=== PATIENT | female | born 1945 | race Caucasian/White ===

== ENCOUNTER 2020-06-23 20:25 | Inpatient (IN) | payer MEDICARE, BC ==
[~2020-06-23] VITALS: Ht 162.6 cm; Wt 61.7 kg
--- NOTE | 2020-06-23 20:47 | NUR ---
Patient states she wants Jhon Click her to be on her contact list .
[2020-06-23] MEDS ORDERED: QUET25TA PO ×2 (20:51)
[2020-06-23] MEDS ORDERED: LITH300T3 PO (20:51)
[2020-06-23] MEDS ORDERED: AMLO-212 PO (20:51)
[2020-06-23] MEDS ORDERED: MIRT-121 PO (20:51)
--- NOTE | 2020-06-23 20:55 | NUR ---
building services technician arrived to take x-ray of patient.
--- NOTE | 2020-06-23 21:00 | NUR ---
electronic technician in room to draw labs from patient.
--- NOTE | 2020-06-23 21:05 | NUR ---
Kobe DO in room to do MSE.
[2020-06-23 21:16] LABS: BASOPHILS # (AUTO) 0.1 K/uL (0.0-8.0); BASOPHILS % (AUTO) 0.9 % (0.0-2.0); EOSINOPHILS # (AUTO) 0.1 K/uL (0.0-0.7); EOSINOPHILS % (AUTO) 1.2 % (0.0-7.0); HEMATOCRIT 42.3 % (31.2-41.9); HEMOGLOBIN 14.1 g/dL (10.9-14.3); LYMPHOCYTES % (AUTO) 25.4 % (20.5-51.5); MEAN CORPUSCULAR HGB CONC 33 g/dL (32.3-35.6); MEAN CORPUSCULAR VOLUME 86.9 fL (75.5-95.3); MONOCYTES # (AUTO) 0.6 K/uL (2.0-10.0); MONOCYTES % (AUTO) 7.4 % (0.0-11.0); NEUTROPHILS # (AUTO) 5.2 K/uL (1.8-8.9); NEUTROPHILS % (AUTO) 65.1 % (38.5-71.5); PLATELET COUNT (AUTO) 282 K/uL (179-408); RED BLOOD CELL COUNT(AUTO) 4.86 MIL/uL (3.63-4.92)
[2020-06-23 21:20] LABS: CARBON DIOXIDE 29 mmol/L (21-32); CHLORIDE 104 mmol/L (98-107); CREATININE 0.7 mg/dL (0.6-1.3); GLUCOSE 100 mg/dL (74-106); POTASSIUM 3.8 mmol/L (3.5-5.1); UREA NITROGEN, BLOOD 13 mg/dL (7-18)
[2020-06-23 21:25] LABS: ALANINE AMINOTRANSFERASE 41 U/L (14-59); ALKALINE PHOSPHATASE 60 U/L (50-136); ASPARTATE AMINOTRANSFERASE 15 U/L (15-37); BILIRUBIN,DIRECT 0.1 mg/dL (0.0-0.2); BILIRUBIN,TOTAL 0.6 mg/dL (0.2-1.0)
[2020-06-23 21:26] LABS: ACETAMINOPHEN < 2.0 ug/mL (10-30)
--- NOTE | 2020-06-23 21:32 | NUR ---
Patient will be assigned to [facility].
[2020-06-23 21:36] LABS: ETHANOL < 3 MG/DL (0-0)
[2020-06-23 21:48] LABS: *AMPHETAMINE, URINE NEGATIVE (NEGATIVE); *CANNABINOID, URINE NEGATIVE (NEGATIVE); *COCCAINE, URINE NEGATIVE (NEGATIVE); *OPIATE, URINE NEGATIVE (NEGATIVE); *PHENCYCLIDINE SCREEN,URINE NEGATIVE (NEGATIVE)
--- NOTE | 2020-06-23 22:16 | NUR ---
Report given to RENE Joyce.
--- NOTE | 2020-06-23 22:35 | NUR ---
Pt. admitted to [facility], under care of Dr. Mendoza. Belongs List completed, all original paperwork with patient.
[2020-06-23] MEDS ORDERED: MAGNESIUM HYDROXIDE 30 ML LIQUID UDC PO PRN (22:45)
[2020-06-23] MEDS ORDERED: TEMAZEPAM 7.5 MG CAPSULE PO PRN (22:45)
[2020-06-23] MEDS ORDERED: LORAZEPAM 1 MG TABLET PO PRN (22:45)
[2020-06-23] MEDS ORDERED: MAG HYDROX/AL HYDROX/SIMETH 30 ML LIQUID UDC PO PRN (22:45)
[2020-06-23] MEDS ORDERED: ACETAMINOPHEN 325 MG TABLET PO PRN (22:45)
[2020-06-23 23:32] VITALS: BP 118/86
--- NOTE | 2020-06-23 23:50 | NUR ---
GPS: Admitted to unit earlier a 74 yr.old female under the care of () who was medically cleared in our E.R. Pt.is on 72 hour hold for DTS/GD. Pt.has not been eating/taking her meds.and verbalized SI and paranoid delusions,per hold. Pt.is alert x2-3 but forgetful. Denies verbalizing SI when asked by staff. Contracts for safety while in the unit. Body check done. Personal belongings completed. Pt's advisement/Pt's rights booklet given. Oriented to surroundings. Unit rules explained. Anxious at times and needs re-assurance. Safety emphasized. Refused sleeping pill for insomnia when offered by staff. Will continue to monitor.
--- NOTE | 2020-06-24 06:34 | NUR ---
GPS: Pt.slept poorly last night (45 minutes only) Refused sleeping pill when offered numerous times. Anxious and frequently looking for her clothes despite staff telling her that her clothes are being washed. Needs attended. Safe environment provided.
[2020-06-24 07:28] LABS: BILIRUBIN,TOTAL 0.9 mg/dL (0.2-1.0); CREATININE 0.8 mg/dL (0.6-1.3); POTASSIUM 4.2 mmol/L (3.5-5.1); TOTAL PROTEIN, SERUM 6.8 g/dL (6.4-8.2)
[2020-06-24 07:30] VITALS: BP 106/67
[2020-06-24] MEDS: AMLODIPINE 5 MG TABLET PO SCH (09:00)
[2020-06-24 15:19] VITALS: BP 124/66
--- NOTE | 2020-06-24 16:00 | NUR ---
Gps/Tablet Technician- In and out of her room, tends, gets intrusive, tries to take care of other patient , checking on thenm, discouraged from doing so, reminded she is a patient , not a Nurse .
[2020-06-24 20:00] VITALS: BP 137/65
[2020-06-24] MEDS: QUETIAPINE FUMARATE 100 MG TABLET PO SCH (21:28)
[2020-06-24] MEDS: LITHIUM CARBONATE 300 MG CAPSULE PO SCH (21:28)
--- NOTE | 2020-06-25 06:15 | NUR ---
PAtient slept 4.15 hrs.Noted in and out of her room and goes to other patient's room to check on them.Patient able to re-direct.
[2020-06-25 07:30] VITALS: BP 127/61
[2020-06-25 08:00] VITALS: BP 127/61
[2020-06-25] MEDS: LITHIUM CARBONATE 300 MG CAPSULE PO SCH ×2 (08:15→20:12)
[2020-06-25] MEDS: AMLODIPINE 5 MG TABLET PO SCH (08:16)
[2020-06-25] MEDS: QUETIAPINE FUMARATE 25 MG TABLET PO SCH (08:16)
--- NOTE | 2020-06-25 08:55 | NUR ---
Gps/Manager Winter- Patient Hesitant to take routine am meds. reviewed with patient rationale, noted > anxious, suspicious about the medications , showed wrappers, how much mgs. they are. Reassured patient she'll be monitored closely , prompted to take meds. Patient interacting fairly well with her roommate
[2020-06-25 16:00] VITALS: BP 128/67
[2020-06-25 20:00] VITALS: BP 121/66
[2020-06-25] MEDS: QUETIAPINE FUMARATE 100 MG TABLET PO SCH (20:12)
--- NOTE | 2020-06-26 06:29 | NUR ---
GPS: Pt.slept for 9 hrs.last night. In no acute distress noted. Re-directed and re-assured prn. Denies wanting to hurt self.
[2020-06-26 07:30] VITALS: BP 108/73
--- NOTE | 2020-06-26 08:29 | NUR ---
Firearms Report: Marine Pipefitter Helper completed and submitted a [employer] firearms report for 5[address] grave disability certification. A copy of report has been placed in patient chart.
[2020-06-26] MEDS: AMLODIPINE 5 MG TABLET PO SCH (09:08)
[2020-06-26] MEDS: QUETIAPINE FUMARATE 25 MG TABLET PO SCH (09:08)
[2020-06-26] MEDS: LITHIUM CARBONATE 300 MG CAPSULE PO SCH ×2 (09:08→20:30)
--- NOTE | 2020-06-26 10:13 | NUR ---
SW Initial Discharge Note: Patient currently resides at home with Jhon located at [address] [place] [address]; ([phone]). Patient would want to go back home upon. This SW contacted patient's Lisa; ([phone]) to gather collateral and discuss treatment plan. SW will coordinate with the family and treatment team to coordinate proper discharge.
--- NOTE | 2020-06-26 10:13 | NUR ---
SW Family Contact: This SW contacted patient's Pual; ([phone]) to gather collateral and discuss treatment plan. Patient's expressed to this SW that Seroquel and [place] has not been affective at home and would want doctor to prescribe another medication for her paranoia. This SW passed on this message to Dr. Moise at 10AM.
[2020-06-26 15:01] VITALS: BP 96/61
--- NOTE | 2020-06-26 15:29 | NUR ---
Individual Therapy: garden worker met with patient for brief counseling and discussed patient's presenting problem paranoid thought content. Patient appeared withdrawn and depressed. Patient unable to maintain proper eye contact. Patient appeared in a position. Patient did not want to speak to this SW at this time.
[2020-06-26 20:12] VITALS: BP 101/61
[2020-06-26] MEDS ORDERED: QUETIAPINE FUMARATE 100 MG TABLET PO SCH (21:00)
[2020-06-27 07:30] VITALS: BP 90/54
[2020-06-27] MEDS: QUETIAPINE FUMARATE 25 MG TABLET PO SCH (08:47)
[2020-06-27] MEDS: AMLODIPINE 5 MG TABLET PO SCH (08:47)
[2020-06-27] MEDS: LITHIUM CARBONATE 300 MG CAPSULE PO SCH ×2 (08:47→20:26)
[2020-06-27 16:00] VITALS: BP 97/61
[2020-06-27 20:18] VITALS: BP 91/54
--- NOTE | 2020-06-27 22:00 | NUR ---
SEROQUEL 150MG PO QHS WAS HELD D/T PATIENT'S LOW B/P OF 91/54MMHG. WILL CONTINUE TO MONITOR.
--- NOTE | 2020-06-28 06:57 | NUR ---
PATIENT SLEPT FOR APPROX 5.15 HRS THROUGH THE NIGHT. WILL CONTINUE TO MONITOR.
[2020-06-28 07:30] VITALS: BP 124/49
[2020-06-28] MEDS: QUETIAPINE FUMARATE 25 MG TABLET PO SCH (08:34)
[2020-06-28] MEDS: AMLODIPINE 5 MG TABLET PO SCH (08:34)
[2020-06-28] MEDS: LITHIUM CARBONATE 300 MG CAPSULE PO SCH ×2 (08:34→20:06)
[2020-06-28] MEDS: ENSURE ENLIVE (VAN) 240 ML LIQUID PO SCH (09:00)
[2020-06-28 16:00] VITALS: BP 136/58
[2020-06-28] MEDS: QUETIAPINE FUMARATE 100 MG TABLET PO SCH (20:06)
[2020-06-28 20:14] VITALS: BP 156/78
[2020-06-29 07:30] VITALS: BP 134/61
[2020-06-29] MEDS: LITHIUM CARBONATE 300 MG CAPSULE PO SCH ×2 (08:07→20:19)
[2020-06-29] MEDS: QUETIAPINE FUMARATE 25 MG TABLET PO SCH (08:07)
[2020-06-29] MEDS: AMLODIPINE 5 MG TABLET PO SCH (08:08)
[2020-06-29] MEDS: ENSURE ENLIVE (VAN) 240 ML LIQUID PO SCH (08:08)
--- NOTE | 2020-06-29 09:17 | NUR ---
Individual Therapy: cafeteria worker met with patient for brief counseling and discussed patient's presenting problem paranoid thought content. Patient continued to appear depressed and withdrawn. She did not want to communicate with this SW at this time.
--- NOTE | 2020-06-29 09:44 | NUR ---
SW Family Contact: This SW spoke with patient's Jhon ([phone]) and stated today will be patient's court hearing.
--- NOTE | 2020-06-29 10:18 | NUR ---
Court Hearing: Patient's court hearing was today and it was upheld for GD.
[2020-06-29 16:31] VITALS: BP 146/69
--- NOTE | 2020-06-29 17:45 | NUR ---
received patient AOx3-4, patient isolative, withdrawn, compliant with medication, patient paranoid, patient suspicious with medication and food trays coming in to her room, needed prompting
[2020-06-29 20:17] VITALS: BP 128/62
[2020-06-29] MEDS: QUETIAPINE FUMARATE 100 MG TABLET PO SCH (20:20)
[2020-06-30 07:30] VITALS: BP 155/126
[2020-06-30] MEDS: AMLODIPINE 5 MG TABLET PO SCH (08:27)
[2020-06-30] MEDS: QUETIAPINE FUMARATE 25 MG TABLET PO SCH (08:27)
[2020-06-30] MEDS: ENSURE ENLIVE (VAN) 240 ML LIQUID PO SCH (08:27)
[2020-06-30] MEDS: LITHIUM CARBONATE 300 MG CAPSULE PO SCH ×2 (08:27→20:09)
--- NOTE | 2020-06-30 11:41 | NUR ---
SW Family Contact: This SW spoke with patient's Jhon ([phone]) who requested to speak to the doctor and this SW notified doctor Reji.
--- NOTE | 2020-06-30 11:51 | NUR ---
SW Family Contact: This SW spoke with patient's Jhon ([phone]) and he stated he is concerned about patient's eye situation. This SW stated that she will transfer this concern to her nurse. This SW notified patient's RN Allan who stated she is aware of this condition and will be giving patient her eye drops. This SW discussed treatment plan and discharge plan with boyfriend Fer. Addendum: 06/30/20 at 1438 by REBEKAH RUIZ Wrong patient
--- NOTE | 2020-06-30 14:49 | NUR ---
Individual Therapy: field ironworker met with patient for brief counseling and discussed patient's presenting problem paranoid thought content. Patient was unable to focus and was focused on her roommate. She kept stating to this SW to help her roommate. Patient unable to focus at this time to conduct therapy.
[2020-06-30 16:00] VITALS: BP 140/65
[2020-06-30] MEDS: QUETIAPINE FUMARATE 100 MG TABLET PO SCH (20:09)
[2020-06-30 20:33] VITALS: BP 132/65
--- NOTE | 2020-07-01 05:58 | NUR ---
Pt slept a total of 5.30 hours last night. Denies pain or SOB. Pt is paranoid but is compliant with meds. Bed is locked and in lowest position. Pt denies SI or HI. Denies AH or VH. No other issues or concerns at this time, will endorse to day shift.
[2020-07-01 07:30] VITALS: BP 109/64
[2020-07-01] MEDS: AMLODIPINE 5 MG TABLET PO SCH (08:39)
[2020-07-01] MEDS: LITHIUM CARBONATE 300 MG CAPSULE PO SCH ×2 (08:39→20:25)
[2020-07-01] MEDS: QUETIAPINE FUMARATE 25 MG TABLET PO SCH (08:39)
[2020-07-01] MEDS: ENSURE ENLIVE (VAN) 240 ML LIQUID PO SCH (08:40)
[2020-07-01 16:00] VITALS: BP 123/67
[2020-07-01 19:54] VITALS: BP 132/87
[2020-07-01] MEDS: QUETIAPINE FUMARATE 100 MG TABLET PO SCH (20:26)
--- NOTE | 2020-07-02 05:11 | NUR ---
Received Pt in the day room socializing with her peers. A-Ox3 with poor insight into her condition and reason for admission. Pt is hyperverbal and attention seeking, attempts to align herself to select staff and staff split. Pt is intrusive and presumptuous with other patient's care and health status. Pt can be disruptive and requires frequent redirection and refocus. Remains somewhat paranoid, but is compliant with medications. No aggressive behaviors. Denies pain, VS WDL.
[2020-07-02 08:30] VITALS: BP 112/54
[2020-07-02] MEDS: ENSURE ENLIVE (VAN) 240 ML LIQUID PO SCH (08:32)
[2020-07-02] MEDS: QUETIAPINE FUMARATE 25 MG TABLET PO SCH (08:32)
[2020-07-02] MEDS: AMLODIPINE 5 MG TABLET PO SCH (08:32)
[2020-07-02] MEDS: LITHIUM CARBONATE 300 MG CAPSULE PO SCH ×2 (08:32→21:21)
[2020-07-02 15:35] VITALS: BP 121/61
[2020-07-02 20:00] VITALS: BP 123/64
--- NOTE | 2020-07-02 21:00 | NUR ---
RECEIVED PATIENT IN HER ROOM IN BED, SHE IS NOTED A/O X 3 CALM AND PLEASANT UPON APPROACHED. SHE IS ABLE TO VERBALIZED FEELINGS. SHE IS LESS ISOLATIVE, LESS WITHDRAWN. SHE IS ABLE TO INTERACT WITH PEERS. SHE IS NOTED GOAL ORIENTED. PATIENT IS COMPLIANT WITH MEDICATION REGIMENT, DIET AND PLAN OF CARE. V/S STABLE. PATIENT WAS GIVEN SNACKS AND PO FLUIDS. SHE IS REASSURED FOR HER SAFETY. SAFETY AND FALL PRECAUTION IN PLACE. WILL CONTINUE TO MONITOR.
[2020-07-02] MEDS: QUETIAPINE FUMARATE 100 MG TABLET PO SCH (21:21)
[2020-07-03 07:30] VITALS: BP 136/62
[2020-07-03] MEDS: LITHIUM CARBONATE 300 MG CAPSULE PO SCH ×2 (08:58→20:03)
[2020-07-03] MEDS: QUETIAPINE FUMARATE 25 MG TABLET PO SCH (08:59)
[2020-07-03] MEDS: ENSURE ENLIVE (VAN) 240 ML LIQUID PO SCH (08:59)
[2020-07-03] MEDS: AMLODIPINE 5 MG TABLET PO SCH (08:59)
[2020-07-03 15:04] VITALS: BP 119/55
--- NOTE | 2020-07-03 15:30 | NUR ---
Individual Therapy: ax survey worker met with patient for brief counseling and discussed patient's presenting problem paranoid thought content. Patient was unable to focus and was focused on other patient's health status. Patient unable to focus and was fixated on discharge. SW unable to conduct therapy at this time.
[2020-07-03] MEDS: OLANZAPINE ZYDIS 5 MG TAB.RAPDIS PO SCH (20:04)
[2020-07-03 20:10] VITALS: BP 147/62
[2020-07-04 07:30] VITALS: BP 131/65
[2020-07-04] MEDS: LITHIUM CARBONATE 300 MG CAPSULE PO SCH ×2 (08:29→20:15)
[2020-07-04] MEDS: AMLODIPINE 5 MG TABLET PO SCH (08:30)
[2020-07-04] MEDS: ENSURE ENLIVE (VAN) 240 ML LIQUID PO SCH (09:38)
--- NOTE | 2020-07-04 14:06 | NUR ---
Coordination of Care: Patient will follow up with (Air Traffic Control Operator) Dr. Markham located at [address] [facility], [place] [address]; ([phone]) on July 10 at 8:40AM and will monitor patients psychotropic medications. Sales Enablement Lead Bro will refer patient to a psychiatrist.
--- NOTE | 2020-07-04 14:14 | NUR ---
REBEKAH Coordination of Care: Patient will follow up with intake evaluation for a new psychiatrist located at [address]. [address], [facility], [address]; ([phone]) and were unavailable to schedule appointment. REBEKAH left a voicemail to call Jhon ([phone]) to schedule the appointment with.
--- NOTE | 2020-07-04 14:15 | NUR ---
SW Family Contact: This SW spoke with patient's daughter Jamila ([phone]) and notified her patient's appointment dates and how this SW left a voicemail for patient's psychiatrist and left patient's husbands number.
[2020-07-04 15:24] VITALS: BP 118/62
[2020-07-04 20:00] VITALS: BP 127/61
[2020-07-04] MEDS: OLANZAPINE ZYDIS 5 MG TAB.RAPDIS PO SCH (20:15)
--- NOTE | 2020-07-04 20:30 | NUR ---
RECEIVED PATIENT IN HER ROOM SITTING IN HER BED. SHE IS NOTED A/O X 3, CALM AND PLEASANT UPON APPROACHED. SHE IS ABLE TO VERBALIZED FEELINGS. NOTED LESS ISOLATIVE LESS WITHDRAWN. GOAL ORIENTED. PATIENT DENIED SI/HI/VH/AH/ SHE IS ABLE TO VERBALLY CFS. V/S STABLE. PATIENT IS COMPLIANT WITH MEDICATION REGIMENT DIET AND PLAN OF CARE. SHE IS REASSURED FOR SAFETY, SAFETY AND FALL PRECAUTION IN PLACE. WILL CONTINUE TO MONITOR.
[2020-07-05 07:20] LABS: BASOPHILS # (AUTO) 0.1 K/uL (0.0-8.0); BASOPHILS % (AUTO) 0.8 % (0.0-2.0); EOSINOPHILS # (AUTO) 0.3 K/uL (0.0-0.7); EOSINOPHILS % (AUTO) 3.1 % (0.0-7.0); HEMOGLOBIN 14.3 g/dL (10.9-14.3); LYMPHOCYTES # (AUTO) 2.1 K/uL (20.0-40.0); LYMPHOCYTES % (AUTO) 21.5 % (20.5-51.5); MEAN CORPUSCULAR HEMOGLOBIN 29.2 uug (24.7-32.8); MEAN CORPUSCULAR HGB CONC 33 g/dL (32.3-35.6); MEAN CORPUSCULAR VOLUME 89.5 fL (75.5-95.3); MONOCYTES # (AUTO) 0.7 K/uL (2.0-10.0); MONOCYTES % (AUTO) 6.9 % (0.0-11.0); NEUTROPHILS # (AUTO) 6.7 K/uL (1.8-8.9); NEUTROPHILS % (AUTO) 67.7 % (38.5-71.5); PLATELET COUNT (AUTO) 304 K/uL (179-408); RED BLOOD CELL COUNT(AUTO) 4.92 MIL/uL (3.63-4.92)
[2020-07-05 07:29] LABS: CREATININE 0.8 mg/dL (0.6-1.3)
[2020-07-05 07:30] VITALS: BP 118/64
[2020-07-05 07:54] LABS: THYROID STIMULATING HORMONE 10.638 mIU/mL (0.358-3.740)
[2020-07-05] MEDS: ENSURE ENLIVE (VAN) 240 ML LIQUID PO SCH (08:43)
[2020-07-05] MEDS: AMLODIPINE 5 MG TABLET PO SCH (08:43)
[2020-07-05] MEDS: LITHIUM CARBONATE 300 MG CAPSULE PO SCH ×2 (08:43→21:20)
--- NOTE | 2020-07-05 11:46 | NUR ---
SW Family Contact: This SW spoke with patient's Jhon ([phone]) and stated patient will be discharged 07/07 and he stated he will pick her up at 2PM.
--- NOTE | 2020-07-05 13:57 | NUR ---
Individual Therapy: panel lay up worker met with patient for brief counseling and discussed patient's presenting problem paranoid thought content. Patient presented with euthymic mood. Patient expressed that she has been feeling better and is looking forward to going back home. Patient was able to have a meaningful conversation. She was able to express her goals when she returns home. She reported that she will be taking care of herself and follow up with her doctor appointments. She expressed she will be exercising more often and implementing gratitude exercises at home. Patient expressed that she "misses her family". This SW actively listened and provided support.
[2020-07-05 16:26] VITALS: BP 112/61
[2020-07-05 20:26] VITALS: BP 118/65
--- NOTE | 2020-07-05 21:00 | NUR ---
RECEIVED PATIENT IN THE DAY ROOM. SHE IS NOTED A/O X 4. SHE IS CALM AND PLEASANT UPON APPROACHED. PATIENT ABLE TO VERBALIZE FEELINGS. SHE IS NOTED GOAL ORIENTED. SHE STATED, "I WANT TO GO HOME AND HUG MY GRANDSON". PATIENT DENIED SI/AH/VH/AH. SHE IS ABLE TO VERBALLY CFS. SAFETY AND FALL PRECAUTIONS ARE IN PLACE. PATIENT IS REASSURED FOR HER SAFETY. V/S STABLE. WILL CONTINUE TO MONITOR.
[2020-07-05] MEDS: OLANZAPINE ZYDIS 5 MG TAB.RAPDIS PO SCH (21:20)
[2020-07-06] MEDS: THYROID 60 MG TABLET PO SCH (06:47)
--- NOTE | 2020-07-06 06:53 | NUR ---
PT SLEPT FOR APPROX 6.30 HRS THROUGH THE NIGHT. SHE CONTINUE CALM AND PLEASANT. SHE IS NOTED GOAL ORIENTED. PATIENT ABLE TO COMPLY WITH MEDICATION REGIMENT DIET AND PLAN OF CARE.
[2020-07-06 07:30] VITALS: BP 108/46
[2020-07-06] MEDS: AMLODIPINE 5 MG TABLET PO SCH (09:00)
[2020-07-06] MEDS: LITHIUM CARBONATE 300 MG CAPSULE PO SCH ×2 (09:29→20:26)
[2020-07-06] MEDS: ENSURE ENLIVE (VAN) 240 ML LIQUID PO SCH (09:36)
[2020-07-06 20:21] VITALS: BP 142/59
[2020-07-06] MEDS: OLANZAPINE ZYDIS 5 MG TAB.RAPDIS PO SCH (20:26)
--- NOTE | 2020-07-07 05:18 | NUR ---
PATIENT SLEPT MOST OF THE NIGHT, COOPERATIVE WITH MEDICATIONS AND CARE, CONT TO MONITOR.
[2020-07-07 07:30] VITALS: BP 116/65
[2020-07-07] MEDS: THYROID 60 MG TABLET PO SCH (07:41)
--- NOTE | 2020-07-07 08:02 | NUR ---
SW Discharge Note: Patient will return home located at [address] [place] [address] ([phone]). Patients Jhon ([phone]) will pickle processor patient at 12PM. Patients Jhon ([phone]) is involved in patients care. Patient is alert and oriented x3 and is happy to be going back home. Patient denies any suicidal or homicidal ideation. Patient is aware and agreeable with discharge plans. Patient denies visual/auditory hallucination. Patient will follow up with (Senior Insight Manager) Dr. Markham located at [address] [place] [address]; ([phone]) on July 10 at 8:40AM and will monitor patients psychotropic medications. Classroom Technology Coach Bro will refer patient to a psychiatrist. Patient will follow up with intake evaluation for a new psychiatrist located at [address] [facility], [facility], [address]; ([phone]) and were unavailable to schedule appointment. SW left a voicemail to call Jhon ([phone]) to schedule the appointment with. Patient presented with euthymic mood and congruent affect.
[2020-07-07 09:00] VITALS: BP 116/65
[2020-07-07] MEDS: ENSURE ENLIVE (VAN) 240 ML LIQUID PO SCH (09:00)
[2020-07-07] MEDS: AMLODIPINE 5 MG TABLET PO SCH (09:00)
[2020-07-07] MEDS: LITHIUM CARBONATE 300 MG CAPSULE PO SCH (09:12)
--- NOTE | 2020-07-07 11:58 | NUR ---
RECEIVED PATIENT ALERT ORIENTED X4, PATIENT DENIES SI AND HI , PATIENT AWARE OF DISCHARGE PLANNING, PATIENT ASSISTED WITH HER ADL, NO SIGN OF ANY DISCOMFORT, PATIENT AWARE OF THE DISCHARGE, DR. GRAY CALLED IN PRESCRIPTION AND PATIENT COOPERATIVE WITH DC PROCESS, PATIENT WAS PICKED UP BY HER MD BRANDIE AWARE OF THE DISCHARGE
== END 2020-07-07 12:19 | disposition home or self-care (01) | DRG 885 ==
LOC: ER 20:33 → GPS 22:25
PROVIDERS: ADMIT Psychiatry & Neurology Psychiatry; ATTEND Family Medicine
DX: F31.89 Other bipolar disorder (principal); F03.91 Unspecified dementia, unspecified severity, with behavioral disturbance; R45.851 Suicidal ideations; E03.9 Hypothyroidism, unspecified; I10 Essential (primary) hypertension; E78.5 Hyperlipidemia, unspecified; F41.9 Anxiety disorder, unspecified; F29 Unspecified psychosis not due to a substance or known physiological condition; Z73.6 Limitation of activities due to disability; F39 Unspecified mood [affective] disorder
CPT/HCPCS: 36415; 70030-TC; 71045; 84443; 85025; 93005; A4663; G0480